=== PATIENT | male | born 1955 | race African-American/Black ===

== ENCOUNTER 2017-03-18 12:31 | Emergency (ER) | payer MEDICARE ==
[~2017-03-18 12:31] MED LIST: 1-ME1LIQ PO; ASPI81TA82 PO; CELE20TA PO; DILA2TAB4 PO; EPZITAB4 PO; INVE6TAB2 PO; LISI30TA44 PO; NEVI200 PO; RANITAB PO
[2017-03-18 12:35] VITALS: BP 150/92; PULSE 93; RESP 22; TEMP 98.7
--- NOTE | 2017-03-18 13:10 | RADRPT ---
EXAM DATE/TIME: 03/18/2017 12:50 [facility] COMPARISON: No previous studies available for comparison. INDICATIONS : Pain elbow radiating into wrist x 5 days, no known injury. MEDICAL HISTORY : None. SURGICAL HISTORY : None. ENCOUNTER: Initial ACUITY: 4 - 6 days PAIN SCORE: 9/10 LOCATION: Right forearm. FINDINGS: Two view examination of the right forearm demonstrates no evidence of fracture or dislocation. Bony mineralization is normal. The soft tissue structures are intact. CONCLUSION: Negative exam. Chi Hernandez MD on March 18, 2017 at 13:08 Board Certified Radiologist. This report was verified electronically.
[2017-03-18 13:23] LABS: AUTOMATED NEUTROPHIL # 2.2 TH/MM3 (1.8-7.7); BASOPHIL % 0.5 % (0.0-2.0); EOSINOPHIL # 0.1 TH/MM3 (0-0.4); EOSINOPHIL % 1.1 % (0.0-4.0); HEMATOCRIT 46.2 % (39.0-51.0); HEMO FLAGS DIFF FINAL; LYMPH % 44.2 % (9.0-44.0); LYMPHOCYTE # 2.2 TH/MM3 (1.0-4.8); MEAN CELL VOLUME 102.7 FL (80.0-100.0); MEAN CORPUSCULAR HGB CONC 34.1 % (32.0-36.0); MONO % 9.4 % (0.0-8.0); NEUT % 44.8 % (16.0-70.0); PLATELET COUNT 191 TH/MM3 (150-450); RED CELL DISTRIBUTION WIDTH 12.8 % (11.6-17.2)
[2017-03-18 13:37] LABS: BICARBONATE 22.7 MEQ/L (21.0-32.0); POTASSIUM 3.9 MEQ/L (3.5-5.1)
[2017-03-18] MEDS ORDERED: COLA100C5 PO (13:43)
[2017-03-18] MEDS ORDERED: ASPI81TA23 PO (13:43)
[2017-03-18] MEDS ORDERED: CLON0.2T PO (13:43)
[2017-03-18] MEDS ORDERED: AMLO10 PO (13:43)
[2017-03-18] MEDS ORDERED: LIPI40TA PO (13:43)
[2017-03-18] MEDS ORDERED: CALC1TAB37 PO (13:43)
[2017-03-18] MEDS ORDERED: EMTR1TAB4 PO (13:43)
[2017-03-18] MEDS ORDERED: REME45TA PO (13:43)
[2017-03-18] MEDS ORDERED: THERTAB56 PO (13:43)
[2017-03-18] MEDS ORDERED: UMEC1AER INH (13:43)
[2017-03-18] MEDS ORDERED: CELE10TA PO (13:43)
[2017-03-18] MEDS ORDERED: [UNRECOGNIZED DRUG - CODE] PO (13:43)
[2017-03-18] MEDS ORDERED: CHOL1CAP34 PO (13:43)
[2017-03-18] MEDS ORDERED: VALA1TAB PO (13:43)
[2017-03-18] MEDS ORDERED: PLAQ200T PO (13:43)
[2017-03-18 13:47] LABS: APTT (PATIENT) 24.7 SEC (24.3-30.1); INTERNATIONAL NORMALIZED RATIO 0.9 RATIO; PROTHROMBIN TIME - PATIENT 10.2 SEC (9.8-11.6)
--- NOTE | 2017-03-18 13:52 | RADRPT ---
EXAM DATE/TIME: 03/18/2017 13:16 [facility] COMPARISON: No previous studies available for comparison. INDICATIONS : Right arm pain and swelling. MEDICAL HISTORY : Hypercholesterolemia. Hypertension. Gastroesophageal reflux disease. Liver disease. HIV. Hep B and C. SURGICAL HISTORY : Cholecystectomy. Left leg fracture repair. ENCOUNTER: Initial ACUITY: 3 days PAIN SCORE: 6/10 LOCATION: Right arm. FINDINGS: There is spontaneous flow documented in the brachial, basilic, cephalic, axillary, and subclavian vei ns. The vessels are compressible and augmentation response is documented. No filling defects are se en. The flow is phasic with respiration. Direction of flow in the jugular vein is caudal. CONCLUSION: No DVT right arm. Castillo Prince MD on March 18, 2017 at 13:49 Board Certified Radiologist. This report was verified electronically.
[2017-03-18] MEDS ORDERED: GABA100C4 PO (14:16)
[2017-03-18] MEDS ORDERED: NAPR500T2 PO (14:16)
--- NOTE | 2017-03-18 14:16 | PD ---
HPI Chief Complaint: Pain: Acute or Chronic Time Seen by Provider: 13:32 Travel History International Travel<30 days: No Contact w/Intl Traveler<30days: No Traveled to known affect area: No History of Present Illness HPI This is a 62 year old male who presents to the emergency department with right arm pain, constant, moderate severity, aching and shooting for three days, starting at his neck, extending down his shoulder and radiating into his fingers with some numbness and tingling in the middle three fingers. He also feels the right arm is somewhat swollen. He tried to go to work to day but it was painful every time he tried to lift anything. He's been trying to take ibuprofen but it's not been helping. He does of a history of HIV which he says is well controlled on medications and he denies any history of IV drug use. PFSH Past Medical History Arthritis: No Asthma: No Autoimmune Disease: Yes (HIV+) Blood Disorders: No Anxiety: No Depression: No Heart Rhythm Problems: No Cancer: No Cardiac Catheterization: Yes Cardiovascular Problems: Yes High Cholesterol: Yes Chemotherapy: No Chest Pain: Yes Congestive Heart Failure: No COPD: No Cerebrovascular Accident: No Diabetes: No Diminished Hearing: No Endocrine: No Gastrointestinal Disorders: Yes (HEP C AND B) GERD: Yes Glaucoma: No Genitourinary: No Headaches: No Hepatitis: Yes (B AND C) Hiatal Hernia: No Hypertension: Yes Immune Disorder: Yes (HIV) Implanted Vascular Access Dvce: Yes Kidney Stones: No Musculoskeletal: No Neurologic: No Psychiatric: No Reproductive: No Respiratory: No Migraines: No Myocardial Infarction: Yes (THINKS MAY HAVE HAD) Radiation Therapy: No Renal Failure: No Seizures: No Sleep Apnea: No Thyroid Disease: No Ulcer: No Tetanus Vaccination: > 5 Years Past Surgical History Abdominal Surgery: Yes (gallbladder removal) AICD: No Cholecystectomy: Yes Coronary Artery Bypass Graft: No Endocrine Surgery: No Genitourinary Surgery: No Gynecologic Surgery: No Joint Replacement: Yes (RODS IN LEFT LEG) Pacemaker: No Other Surgery: Yes Social History Alcohol Use: No Tobacco Use: Yes (1PPD) Substance Use: No Allergies-Medications (Allergen,Severity, Reaction): Coded Allergies: No Known Allergies (Verified Adverse Reaction, Unknown, 03/18/17) Reported Meds & Prescriptions Reported Meds & Active Scripts Active Reported Anoro Ellipta Inh (Umeclidinium/Vilanterol) 62.5-25 Mcg/Act Aero 1 Puff INH DAILY Valacyclovir (Valacyclovir HCl) 1,000 Mg Tab 1,000 Mg PO DAILY Thera (Multiple Vitamin) 1 Tab Tab 1 Tab PO DAILY Calcium 600+D (Calcium Carbonate-Cholecalciferol) 600-800 Mg-Unit Tab 1 Tab PO BID Norvasc (Amlodipine Besylate) 10 Mg Tab 10 Mg PO DAILY Clonidine (Clonidine HCl) 0.2 Mg Tab 0.2 Mg PO BID Celexa (Citalopram Hydrobromide) 10 Mg Tab 10 Mg PO DAILY Colace (Docusate Sodium) 100 Mg Capsule 100 Mg PO BID Aspirin EC (Aspirin) 81 Mg Tabdr 81 Mg PO DAILY Lipitor (Atorvastatin Calcium) 40 Mg Tab 40 Mg PO HS Plaquenil (Hydroxychloroquine Sulfate) 200 Mg Tab 200 Mg PO DAILY Take with food Remeron (Mirtazapine) 45 Mg Tab 45 Mg PO HS Vitamin D3 (Cholecalciferol) 50,000 Unit Cap 50,000 Units PO EVERY 2 WEEKS Descovy (Emtricitabine-Tenofovir Alafenamide) 200-25 mg Tab 1 Tab PO DAILY Nevirapine ER (Nevirapine) 400 Mg Tab 400 Mg PO DAILY Review of Systems Except as stated in HPI: all other systems reviewed are Neg Physical Exam Narrative GENERAL:Well appearing, no acute distress SKIN: Focused skin assessment warm and dry. HEAD: Atraumatic. Normocephalic. EYES: Pupils equal and round. No injection or drainage. ENT: Moist mucous membranes NECK: Trachea midline. CARDIOVASCULAR: Regular rate and rhythm. No murmur appreciated. 2+ right radial pulse with normal capillary refill. Hand is warm and well perfused. RESPIRATORY: Clear to auscultation. Breath sounds equal bilaterally. GASTROINTESTINAL: Abdomen soft, non-tender, nondistended. MUSCULOSKELETAL: No obvious deformities. NEUROLOGICAL: Awake and alert. No obvious cranial nerve deficits. Sensation and motor intact in the median, ulnar and radial distributions of the right hand. PSYCHIATRIC: Appropriate mood and affect; insight and judgment normal. Data Data Last Documented VS Vital Signs Date Time Temp Pulse Resp B/P (MAP) Pulse Ox O2 Delivery O2 Flow Rate FiO2 03/18/17 12:35 98.7 93 22 150/92 (111) Orders Orders Us Arm Venous Doppler (03/18/17 ) Forearm (2vws) (03/18/17 ) Complete Blood Count With Diff (03/18/17 12:41) Basic Metabolic Panel (Bmp) (03/18/17 12:41) Coag Profile (03/18/17 12:41) Labs Laboratory Tests Test 03/18/17 12:45 White Blood Count 5.0 TH/MM3 Red Blood Count 4.50 MIL/MM3 Hemoglobin 15.8 GM/DL Hematocrit 46.2 % Mean Corpuscular Volume 102.7 FL Mean Corpuscular Hemoglobin 35.0 PG Mean Corpuscular Hemoglobin Concent 34.1 % Red Cell Distribution Width 12.8 % Platelet Count 191 TH/MM3 Mean Platelet Volume 6.8 FL Neutrophils (%) (Auto) 44.8 % Lymphocytes (%) (Auto) 44.2 % Monocytes (%) (Auto) 9.4 % Eosinophils (%) (Auto) 1.1 % Basophils (%) (Auto) 0.5 % Neutrophils # (Auto) 2.2 TH/MM3 Lymphocytes # (Auto) 2.2 TH/MM3 Monocytes # (Auto) 0.5 TH/MM3 Eosinophils # (Auto) 0.1 TH/MM3 Basophils # (Auto) 0.0 TH/MM3 CBC Comment DIFF FINAL Differential Comment Prothrombin Time 10.2 SEC Prothromb Time International Ratio 0.9 RATIO Activated Partial Thromboplast Time 24.7 SEC Blood Urea Nitrogen 16 MG/DL Creatinine 1.14 MG/DL Random Glucose 101 MG/DL Calcium Level 9.0 MG/DL Sodium Level 138 MEQ/L Potassium Level 3.9 MEQ/L Chloride Level 107 MEQ/L Carbon Dioxide Level 22.7 MEQ/L Anion Gap 8 MEQ/L Estimat Glomerular Filtration Rate 79 ML/MIN [facility] Medical Decision Making Medical Screen Exam Complete: Yes Emergency Medical Condition: Yes Interpretation(s) No leukocytosis Macrocytosis Electrolytes are reassuring Differential Diagnosis Cervical radiculopathy, right upper extremity DVT, cellulitis, gout, osteoarthritis, SVC syndrome Narrative Course This is a 62-year-old male who presents to the emergency department with right upper extremity pain that shoots down the arm and is associated with this some numbness in the fingers. The hand is well perfused. I don't appreciate any focal warmth to suggest an infection. I think the description of his symptoms sounds concerning for cervical radiculopathy. He denies any history of IV drug use and he is afebrile and nontoxic. Right upper extremity ultrasound was negative. He does have a history of pulmonary emboli. I advised him that if his symptoms don't improve in one week he should have a repeat ultrasound. Otherwise he'll be treated with anti-inflammatories and gabapentin for neuropathy and he was told to follow up with his primary care physician for physical therapy. Diagnosis Primary Impression: Cervical radiculopathy Patient Instructions: General Instructions Additional Instructions: If If you develop increasing numbness, weakness of your hand, coolness or severe pain return to the emergency department. If you symptoms are still present after one week, have a repeat ultrasound of your right arm to rule out blood clot. Followup with your primary care physician in 2-3 days if your symptoms are not resolved as you may require physical therapy. Med/Other Pt SpecificInfo: Prescription(s) given Scripts Gabapentin (Gabapentin) 100 Mg Cap 100 MG PO TID for Pain Management, #50 CAP 0 Refills Prov: Lizzy Porter MD 03/18/17 Naproxen (Naproxen) 500 Mg Tab 500 MG PO BID Y for PAIN SCALE 4 TO 10, #20 TAB 0 Refills Prov: Lizzy Porter MD 03/18/17 Disposition: 01 DISCHARGE HOME Condition: Stable Lizzy Porter MD Mar 18, 2017 14:16
[2017-03-18] MEDS ORDERED: KETOROLAC TROMETHAMINE 60 MG/2 ML (IM) VIAL IM ONE (14:30)
[2017-03-18] MEDS ORDERED: HYDROmorphone HCL PF 0.5 MG/0.5 ML SYRINGE IM ONE (14:30)
[2017-03-18 14:32] VITALS: BP 152/89
== END 2017-03-18 14:41 | disposition home or self-care (01) ==
LOC: NEPD 12:31
DX: M54.12 Radiculopathy, cervical region (principal); I10 Essential (primary) hypertension; E78.00 Pure hypercholesterolemia, unspecified; Z21 Asymptomatic human immunodeficiency virus [HIV] infection status; B19.20 Unspecified viral hepatitis C without hepatic coma; K21.9 Gastro-esophageal reflux disease without esophagitis; F17.200 Nicotine dependence, unspecified, uncomplicated
CPT/HCPCS: 73090; 80048; 85025; 85610; 85730; 93971; 96372; 99285; J1170; J1885

== ENCOUNTER 2017-08-26 05:32 | Observation (INO) | payer MEDICARE, OTHER ==
[~2017-08-26] VITALS: Ht 170.2 cm; Wt 80.0 kg
[2017-08-26] VITALS (8 sets, daily range): BP systolic 115–132; BP diastolic 60–79; PULSE 65–106; RESP 16–19; TEMP 96.8–98.1; O2SAT 93–99
[~2017-08-26 05:32] MED LIST changes: -1-ME1LIQ PO; +AMLO10 PO; +ASPI81TA23 PO; -ASPI81TA82 PO; +CALC1TAB37 PO; +CELE10TA PO; -CELE20TA PO; +CHOL1CAP34 PO; +CLON0.2T PO; +COLA100C5 PO; -DILA2TAB4 PO; +EMTR1TAB4 PO; -EPZITAB4 PO; +GABA100C4 PO; -INVE6TAB2 PO; +LIPI40TA PO; -LISI30TA44 PO; +NAPR500T2 PO; -NEVI200 PO; +PLAQ200T PO; -RANITAB PO; +REME45TA PO; +THERTAB56 PO; +UMEC1AER INH; +VALA1TAB PO; +[UNRECOGNIZED DRUG - CODE] PO
--- NOTE | 2017-08-26 05:49 | PD ---
HPI Chief Complaint: Allergic/Adverse Reaction Time Seen by Provider: 05:45 Travel History International Travel<30 days: No Contact w/Intl Traveler<30days: No Traveled to known affect area: No History of Present Illness HPI The patient is a 62 year old male who presents to the [facility] emergency department with a history of awakening at 4:50 AM with a sensation of swelling and itching to the left side of his lower lip. The patient reports that he has had this happen in the past, one year ago. He was told that it might be related to his lisinopril, however his primary care physician continued him on the medication. He denies having any history of food allergies or environmental allergies. He denies having any tongue or throat swelling. He denies having any chest pain, chest pressure, or shortness of breath. He denies having any abdominal pain, diarrhea, or cramping. He denies having any generalized itching or other rash. On review of systems otherwise, the patient denies having any known recent fevers, cough, congestion, neck pain, vomiting, urinary symptoms, or neurologic symptoms. [facility] Past Medical History Narrative Medical The patient's past medical history is significant for angioedema 1 year ago, history of mood disorder, history of HIV currently on retroviral medications with his last CD4 count done in June 2017 and reportedly 758 with a viral load that was undetectable, history of hypertension, hyperlipidemia, acid reflux , anxiety, depression, history of substance abuse, history of hepatitis B and C. Arthritis: No Asthma: No Autoimmune Disease: Yes (HIV+) Blood Disorders: No Anxiety: No Depression: No Heart Rhythm Problems: No Cancer: No Cardiac Catheterization: Yes Cardiovascular Problems: Yes High Cholesterol: Yes Chemotherapy: No Chest Pain: Yes Congestive Heart Failure: No COPD: No Cerebrovascular Accident: No Diabetes: No Diminished Hearing: No Endocrine: No Gastrointestinal Disorders: Yes (HEP C AND B) GERD: Yes Glaucoma: No Genitourinary: No Headaches: No Hepatitis: Yes (B AND C) Hiatal Hernia: No Hypertension: Yes Immune Disorder: Yes (HIV) Implanted Vascular Access Dvce: Yes Kidney Stones: No Musculoskeletal: No Neurologic: No Psychiatric: No Reproductive: No Respiratory: No Migraines: No Myocardial Infarction: Yes (THINKS MAY HAVE HAD) Radiation Therapy: No Renal Failure: No Seizures: No Sleep Apnea: No Thyroid Disease: No Ulcer: No Tetanus Vaccination: < 5 Years Influenza Vaccination: Yes Past Surgical History Narrative Surgical The patient's past surgical history is significant for cholecystectomy, left knee surgery. Abdominal Surgery: Yes (gallbladder removal) AICD: No Cholecystectomy: Yes Coronary Artery Bypass Graft: No Endocrine Surgery: No Genitourinary Surgery: No Gynecologic Surgery: No Joint Replacement: Yes (RODS IN LEFT LEG) Pacemaker: No Other Surgery: Yes Social History Alcohol Use: No Tobacco Use: Yes (1PPD) Substance Use: No Allergies-Medications (Allergen,Severity, Reaction): Coded Allergies: lisinopril (Verified Allergy, Severe, 08/26/17) angioedema Reported Meds & Prescriptions Reported Meds & Active Scripts Active Gabapentin 100 Mg Cap 100 Mg PO TID Naproxen 500 Mg Tab 500 Mg PO BID PRN Reported Anoro Ellipta Inh (Umeclidinium/Vilanterol) 62.5-25 Mcg/Act Aero 1 Puff INH DAILY Valacyclovir (Valacyclovir HCl) 1,000 Mg Tab 1,000 Mg PO DAILY Thera (Multiple Vitamin) 1 Tab Tab 1 Tab PO DAILY Calcium 600+D (Calcium Carbonate-Cholecalciferol) 600-800 Mg-Unit Tab 1 Tab PO BID Norvasc (Amlodipine Besylate) 10 Mg Tab 10 Mg PO DAILY Clonidine (Clonidine HCl) 0.2 Mg Tab 0.2 Mg PO BID Celexa (Citalopram Hydrobromide) 10 Mg Tab 10 Mg PO DAILY Colace (Docusate Sodium) 100 Mg Capsule 100 Mg PO BID Aspirin EC (Aspirin) 81 Mg Tabdr 81 Mg PO DAILY Lipitor (Atorvastatin Calcium) 40 Mg Tab 40 Mg PO HS Plaquenil (Hydroxychloroquine Sulfate) 200 Mg Tab 200 Mg PO DAILY Take with food Remeron (Mirtazapine) 45 Mg Tab 45 Mg PO HS Vitamin D3 (Cholecalciferol) 50,000 Unit Cap 50,000 Units PO EVERY 2 WEEKS Descovy (Emtricitabine-Tenofovir Alafenamide) 200-25 mg Tab 1 Tab PO DAILY Nevirapine ER (Nevirapine) 400 Mg Tab 400 Mg PO DAILY Review of Systems Except as stated in HPI: all other systems reviewed are Neg General / Constitutional: No: Fever Eyes: No: Visual changes HENT: Positive: Other (Lip swelling), No: Headaches Cardiovascular: No: Chest Pain or Discomfort Respiratory: No: Shortness of Breath Gastrointestinal: No: Abdominal Pain Genitourinary: No: Dysuria Musculoskeletal: No: Pain Skin: No Rash Neurologic: No: Weakness Psychiatric: No: Depression Endocrine: No: Polydipsia Hematologic/Lymphatic: No: Easy Bruising Physical Exam Narrative General: The patient is a well-developed well-nourished male in no acute distress. Head and Neck exam: Head is normocephalic atraumatic. Eyes: EOMI, pupils are equal round and reactive to light. Nose: Midline septum with pink mucous membranes Mouth: The patient is noted to have swelling of his lower lip predominantly on the left side. Dentition unremarkable. Moist mucus membranes. Posterior oropharynx is not erythematous. No tonsillar hypertrophy. Uvula midline. Airway patent. Neck: No palpable lymphadenopathy. No nuchal rigidity. No thyromegaly. Cardiovascular: Regular rate and rhythm without murmurs, gallops, or rubs. No pulse deficit to the extremities on simultaneous auscultation and palpation of his radial artery. Lungs: Clear to auscultation bilaterally. No wheezes, rhonchi, or rales. Abdomen: Soft, without tenderness to palpation in all 4 quadrants of the abdomen. No guarding, rebound, or rigidity. Normal bowel sounds are audible. No tenderness on palpation of McBurney's point. Extremities: No clubbing, cyanosis, or edema. 2+ pulses in all 4 extremities. No calf tenderness on palpation. Back: No spinous process tenderness to palpation. No costovertebral angle tenderness to palpation. Neurologic Exam: Grossly nonfocal Skin Exam: No rash noted. Intact skin that is warm and dry. Data Data Last Documented VS Vital Signs Date Time Temp Pulse Resp B/P (MAP) Pulse Ox O2 Delivery O2 Flow Rate FiO2 08/26/17 05:37 97.7 106 18 122/64 (83) 99 Orders Orders Complete Blood Count With Diff (08/26/17 05:56) Basic Metabolic Panel (Bmp) (08/26/17 05:56) Iv Access Insert/Monitor (08/26/17 05:56) Ecg Monitoring (08/26/17 05:56) Oximetry (08/26/17 05:56) Diphenhydramine Inj (Benadryl Inj) (08/26/17 06:00) Methylprednisolone So Succ Inj (Solumedr (08/26/17 06:00) Famotidine Inj (Pepcid Inj) (08/26/17 06:00) MDM Medical Decision Making Medical Screen Exam Complete: Yes Emergency Medical Condition: Yes Medical Record Reviewed: Yes Differential Diagnosis Allergic reaction with hives, versus angioedema from MARLEE inhibitor, versus hereditary angioedema Narrative Course During the course of the patient's emergency department visit, the patient's history, examination, and differential diagnosis were reviewed with the patient. The patient was placed on a cardiac care unit nurse with oximetry and frequent blood pressure monitoring. The patient had IV access obtained and blood work sent for analysis. The patient was initially provided Benadryl 25 mg IV, Solu-Medrol 125 mg IV, famotidine 20 mg IV. The patient's laboratory studies are pending at the conclusion of my shift. The patient's case will be checked out to the oncoming emergency physician to disposition the patient based on the conclusion of his workup. The patient was reexamined at approximately 6:50 AM. The patient continues to have some swelling of his lower lip, however no tongue swelling, no posterior oropharynx swelling. The patient is resting comfortably on the monitor. Additional Instructions: The patient is instructed to stop lisinopril and avoid all MARLEE inhibitors. Meera Villanueva MD Aug 26, 2017 05:49
[2017-08-26] MEDS ORDERED: FAMOTIDINE 20 MG/2 ML VIAL IV PUSH SCH (06:00)
[2017-08-26] MEDS ORDERED: methylPREDNISolone SOD SUCC 125 MG/2 ML VIAL IV PUSH ONE (06:00)
[2017-08-26] MEDS: diphenhydrAMINE HCL 50 MG/ML VIAL IV PUSH ONE ×2 (06:48→07:25)
--- NOTE | 2017-08-26 06:58 | PD ---
Physical Exam Date Seen by Provider: Aug 26, 2017 Time Seen by Provider: 06:56 Narrative The patient is a 62-year-old male was initially evaluated by the previous physician. Please refer to the initial history, physical, diagnostic evaluation , and treatment modality plan. The patient was signed out at 7 AM with laboratory evaluation and reevaluation pending. Data Data Last Documented VS Vital Signs Date Time Temp Pulse Resp B/P (MAP) Pulse Ox O2 Delivery O2 Flow Rate FiO2 08/26/17 05:37 97.7 106 18 122/64 (83) 99 Orders Orders Complete Blood Count With Diff (08/26/17 05:56) Basic Metabolic Panel (Bmp) (08/26/17 05:56) Iv Access Insert/Monitor (08/26/17 05:56) Ecg Monitoring (08/26/17 05:56) Oximetry (08/26/17 05:56) Diphenhydramine Inj (Benadryl Inj) (08/26/17 06:00) Methylprednisolone So Succ Inj (Solumedr (08/26/17 06:00) Famotidine Inj (Pepcid Inj) (08/26/17 06:00) Labs Laboratory Tests Test 08/26/17 06:42 White Blood Count 6.1 TH/MM3 Red Blood Count 4.33 MIL/MM3 Hemoglobin 15.3 GM/DL Hematocrit 44.3 % Mean Corpuscular Volume 102.3 FL Mean Corpuscular Hemoglobin 35.3 PG Mean Corpuscular Hemoglobin Concent 34.5 % Red Cell Distribution Width 13.2 % Platelet Count 184 TH/MM3 Mean Platelet Volume 7.4 FL Neutrophils (%) (Auto) 79.2 % Lymphocytes (%) (Auto) 14.7 % Monocytes (%) (Auto) 5.8 % Eosinophils (%) (Auto) 0.0 % Basophils (%) (Auto) 0.3 % Neutrophils # (Auto) 4.8 TH/MM3 Lymphocytes # (Auto) 0.9 TH/MM3 Monocytes # (Auto) 0.4 TH/MM3 Eosinophils # (Auto) 0.0 TH/MM3 Basophils # (Auto) 0.0 TH/MM3 CBC Comment AUTO DIFF Differential Comment AUTO DIFF CONFIRMED Platelet Estimate NORMAL Platelet Morphology Comment NORMAL Blood Urea Nitrogen 23 MG/DL Creatinine 1.13 MG/DL Random Glucose 115 MG/DL Calcium Level 8.9 MG/DL Sodium Level 139 MEQ/L Potassium Level 4.6 MEQ/L Chloride Level 106 MEQ/L Carbon Dioxide Level 24.4 MEQ/L Anion Gap 9 MEQ/L Estimat Glomerular Filtration Rate 80 ML/MIN [facility] Medical Record Reviewed: Yes Supervised Visit with YAMILKA: No Interpretation(s) Laboratory Tests Test 08/26/17 06:42 White Blood Count 6.1 TH/MM3 Red Blood Count 4.33 MIL/MM3 Hemoglobin 15.3 GM/DL Hematocrit 44.3 % Mean Corpuscular Volume 102.3 FL Mean Corpuscular Hemoglobin 35.3 PG Mean Corpuscular Hemoglobin Concent 34.5 % Red Cell Distribution Width 13.2 % Platelet Count 184 TH/MM3 Mean Platelet Volume 7.4 FL Neutrophils (%) (Auto) 79.2 % Lymphocytes (%) (Auto) 14.7 % Monocytes (%) (Auto) 5.8 % Eosinophils (%) (Auto) 0.0 % Basophils (%) (Auto) 0.3 % Neutrophils # (Auto) 4.8 TH/MM3 Lymphocytes # (Auto) 0.9 TH/MM3 Monocytes # (Auto) 0.4 TH/MM3 Eosinophils # (Auto) 0.0 TH/MM3 Basophils # (Auto) 0.0 TH/MM3 CBC Comment AUTO DIFF Differential Comment AUTO DIFF CONFIRMED Platelet Estimate NORMAL Platelet Morphology Comment NORMAL Blood Urea Nitrogen 23 MG/DL Creatinine 1.13 MG/DL Random Glucose 115 MG/DL Calcium Level 8.9 MG/DL Sodium Level 139 MEQ/L Potassium Level 4.6 MEQ/L Chloride Level 106 MEQ/L Carbon Dioxide Level 24.4 MEQ/L Anion Gap 9 MEQ/L Estimat Glomerular Filtration Rate 80 ML/MIN Differential Diagnosis Differential diagnosis includes angioedema, allergic reaction, anaphylaxis, medication side effect, abscess. Narrative Course Patient was initially evaluated by the previous physician, Dr. Villanueva. Please refer to the initial history, physical, diagnostic evaluation, and treatment modality plan. The patient was signed out at 7 AM with laboratory evaluation and reevaluation of angioedema pending. Laboratory evaluation unremarkable. The patient was reevaluated once again at 8:10 AM. The patient's lower lip swelling has progressed per the patient's report and by physical exam. Still no involvement of the uvula, posterior oropharynx or tongue. He is able to lie supine at 30 he denies any difficulty swallowing. However, the angioedema has progressed, therefore, patient will need 23 hour observation. The patient states he does not change the dose of his lisinopril recently and denies any recent changes in his antiviral medications. The patient has [facility], therefore, discussed the patient with the on-call [facility] physician, Dr. Morse, who agrees with observation. The patient is advised to notify nursing staff immediately if he has any increase in swelling, difficulty swallowing, or involvement of the posterior throat and/or tongue. Physician Communication Physician Communication I discussed the patient with Dr. Morse who agrees with 23 hour observation. Diagnosis Primary Impression: Angioedema Qualified Codes: T78.3XXA - Angioneurotic edema, initial encounter Admitting Information Admitting Physician Requests: Observation Additional Instruction: The patient is instructed to stop lisinopril and avoid all MARLEE inhibitors. Condition: Stable Junaid Gonzalez MD Aug 26, 2017 06:58
[2017-08-26 07:14] LABS: AUTOMATED NEUTROPHIL # 4.8 TH/MM3 (1.8-7.7); BASOPHIL % 0.3 % (0.0-2.0); HEMATOCRIT 44.3 % (39.0-51.0); HEMOGLOBIN 15.3 GM/DL (13.0-17.0); LYMPH % 14.7 % (9.0-44.0); LYMPHOCYTE # 0.9 TH/MM3 (1.0-4.8); MEAN CELL VOLUME 102.3 FL (80.0-100.0); MEAN CORPUSCULAR HEMOGLOBIN 35.3 PG (27.0-34.0); MEAN CORPUSCULAR HGB CONC 34.5 % (32.0-36.0); MEAN PLATELET VOLUME 7.4 FL (7.0-11.0); MONO % 5.8 % (0.0-8.0); MONOCYTE # 0.4 TH/MM3 (0-0.9); NEUT % 79.2 % (16.0-70.0); PLATELET COUNT 184 TH/MM3 (150-450); RED BLOOD COUNT 4.33 MIL/MM3 (4.50-5.90); RED CELL DISTRIBUTION WIDTH 13.2 % (11.6-17.2); WHITE BLOOD COUNT 6.1 TH/MM3 (4.0-11.0)
[2017-08-26 07:53] LABS: BICARBONATE 24.4 MEQ/L (21.0-32.0); CALCIUM 8.9 MG/DL (8.5-10.1); CREATININE 1.13 MG/DL (0.60-1.30)
[2017-08-26] MEDS ORDERED: LISI40TA PO (07:57)
[2017-08-26] MEDS ORDERED: ANDR1.62 TOPICAL (07:57)
[2017-08-26] MEDS ORDERED: ONDANSETRON HCL 4 MG/2 ML VIAL IVP PRN (08:30)
[2017-08-26] MEDS ORDERED: NALOXONE HCL 0.4 MG/ML AMP IV PUSH PRN (08:30)
[2017-08-26] MEDS ORDERED: MAGNESIUM HYDROXIDE SUSP 30 ML CUP PO PRN (08:30)
[2017-08-26] MEDS ORDERED: diphenhydrAMINE HCL 50 MG/ML VIAL IV PUSH PRN (08:30)
[2017-08-26] MEDS ORDERED: ACETAMINOPHEN 325 MG TAB PO PRN (08:30)
[2017-08-26] MEDS ORDERED: SODIUM CHLORIDE 0.9% FLUSH 10 ML FLUSH IV FLUSH PRN (08:30)
--- NOTE | 2017-08-26 08:54 | HHI.HP ---
HPI Service [facility] Hospitalists Primary Care Physician Lalito Cote MD Admission Diagnosis Angioedema, medication side effect Chief Complaint: Swelling of lower lip which started this morning approximately 4:30 AM Travel History International Travel<30 Days: No Contact w/Intl Traveler <30 Da: No Traveled to Known Affected Are: No History of Present Illness The patient is a 62 year old male with a past medical history which includes angioedema approximately one year ago, bipolar disorder, HIV currently on antiretrovirals, hypertension, hyperlipidemia, acid reflux, anxiety/depression history of substance abuse as well as hepatitis B and C. Patient presented to the [facility] emergency department with a history of awakening at 4:50 AM with a sensation of swelling and itching to the left side of his lower lip. The patient reports that he has had this happen in the past, one year ago. He was told that it might be related to his lisinopril, however patient continues to take Lisinopril. He denies having any history of food allergies or environmental allergies. He denies having any tongue or throat swelling. He also denies having any chest pain, chest pressure, or shortness of breath, abdominal pain, diarrhea, cramping, generalized itching or other rash. Patient denies any changes in his medications or new medication. Past Family Social History Past Medical History angioedema approximately one year ago, bipolar disorder, HIV currently on antiretrovirals reports last CD4 count June 1999 02/12/57, hypertension, hyperlipidemia, acid reflux, anxiety/depression history of substance abuse as well as hepatitis B and C Past Surgical History cholecystectomy, left knee surgery. Reported Medications Androgel Pump Topical (Testosterone) 20.25/1.25 Gel 20.25 Mg TOPICAL DAILY Lisinopril 40 Mg Tab 40 Mg PO DAILY Anoro Ellipta Inh (Umeclidinium/Vilanterol) 62.5-25 Mcg/Act Aero 1 Puff INH DAILY Valacyclovir (Valacyclovir HCl) 1,000 Mg Tab 1,000 Mg PO DAILY Thera (Multiple Vitamin) 1 Tab Tab 1 Tab PO DAILY Calcium 600+D (Calcium Carbonate-Cholecalciferol) 600-800 Mg-Unit Tab 1 Tab PO BID Norvasc (Amlodipine Besylate) 10 Mg Tab 10 Mg PO DAILY Clonidine (Clonidine HCl) 0.2 Mg Tab 0.2 Mg PO BID Celexa (Citalopram Hydrobromide) 10 Mg Tab 10 Mg PO DAILY Colace (Docusate Sodium) 100 Mg Capsule 100 Mg PO BID Aspirin EC (Aspirin) 81 Mg Tabdr 81 Mg PO DAILY Lipitor (Atorvastatin Calcium) 40 Mg Tab 40 Mg PO HS Plaquenil (Hydroxychloroquine Sulfate) 200 Mg Tab 200 Mg PO BID Take with food Remeron (Mirtazapine) 45 Mg Tab 45 Mg PO HS Vitamin D3 (Cholecalciferol) 50,000 Unit Cap 50,000 Units PO EVERY 2 WEEKS Descovy (Emtricitabine-Tenofovir Alafenamide) 200-25 mg Tab 1 Tab PO DAILY Nevirapine ER (Nevirapine) 400 Mg Tab 400 Mg PO DAILY Allergies: Coded Allergies: lisinopril (Verified Allergy, Severe, 08/26/17) angioedema Family History Reviewed and noncontributory Social History EtOH use 1-2 beers per day Tobacco use current smoker two packs per day for the past 40 + years Denies illicit drug use Physical Exam Vital Signs Vital Signs Date Time Temp Pulse Resp B/P (MAP) Pulse Ox O2 Delivery O2 Flow Rate FiO2 08/26/17 08:20 65 16 132/79 (96) 96 Room Air 08/26/17 05:37 97.7 106 18 122/64 (83) 99 Physical Exam GENERAL: This is a well-nourished, well-developed patient with edema of entire lower lip SKIN: No rashes, ecchymoses or lesions. Cool and dry. HEAD: Atraumatic. Normocephalic. No temporal or scalp tenderness. EYES: Extraocular motions intact. No scleral icterus. No injection or drainage. ENT: Nose without bleeding, purulent drainage or septal hematoma. Throat without erythema, tonsillar hypertrophy or exudate. Uvula midline. Airway patent. NECK: Trachea midline. No JVD or lymphadenopathy. Supple, nontender, no meningeal signs. CARDIOVASCULAR: Regular rate and rhythm RESPIRATORY: Clear to auscultation. Breath sounds equal bilaterally. Good air movement no accessory muscle use GASTROINTESTINAL: Abdomen soft, non-tender, nondistended. MUSCULOSKELETAL: Extremities without clubbing, cyanosis, or edema. No joint tenderness, effusion, or edema noted. No calf tenderness. Negative Homans sign bilaterally. NEUROLOGICAL: Awake and alert. No focal deficits identified. Motor and sensory grossly within normal limits. Five out of 5 muscle strength in all muscle groups. Laboratory Laboratory Tests Test 08/26/17 06:42 White Blood Count 6.1 Red Blood Count 4.33 Hemoglobin 15.3 Hematocrit 44.3 Mean Corpuscular Volume 102.3 Mean Corpuscular Hemoglobin 35.3 Mean Corpuscular Hemoglobin Concent 34.5 Red Cell Distribution Width 13.2 Platelet Count 184 Mean Platelet Volume 7.4 Neutrophils (%) (Auto) 79.2 Lymphocytes (%) (Auto) 14.7 Monocytes (%) (Auto) 5.8 Eosinophils (%) (Auto) 0.0 Basophils (%) (Auto) 0.3 Neutrophils # (Auto) 4.8 Lymphocytes # (Auto) 0.9 Monocytes # (Auto) 0.4 Eosinophils # (Auto) 0.0 Basophils # (Auto) 0.0 CBC Comment AUTO DIFF Differential Comment AUTO DIFF CONFIRMED Platelet Estimate NORMAL Platelet Morphology Comment NORMAL Blood Urea Nitrogen 23 Creatinine 1.13 Random Glucose 115 Calcium Level 8.9 Sodium Level 139 Potassium Level 4.6 Chloride Level 106 Carbon Dioxide Level 24.4 Anion Gap 9 Estimat Glomerular Filtration Rate 80 Result Diagram: 08/26/1742 08/26/1742 Caprini VTE Risk Assessment Caprini VTE Risk Assessment: No/Low Risk (score <= 1) Caprini Risk Assessment Model Point Value = 1 Point Value = 2 Point Value = 3 Point Value = 5 Age 41-60 Minor surgery BMI > 25 kg/m2 Swollen legs Varicose veins or History of unexplained or recurrent spontaneous Oral contraceptives or hormone replacement Sepsis (< 1 month) Serious lung disease, including pneumonia (< 1 month) Abnormal pulmonary function Acute myocardial infarction Congestive heart failure (< 1 month) History of inflammatory bowel disease Medical patient at bed rest Age 61-74 Arthroscopic surgery Major open surgery (> 45 min) Laparoscopic surgery (> 45 min) Malignancy Confined to bed (> 72 hours) Immobilizing plaster cast Central venous access Age >= 75 History of VTE Family history of VTE Factor V Leiden Prothrombin [id number] Lupus anticoagulant Anticardiolipin antibodies Elevated serum homocysteine Heparin-induced thrombocytopenia Other congenital or acquired thrombophilia Stroke (< 1 month) Elective arthroplasty Hip, pelvis, or leg fracture Acute spinal cord injury (< 1 month) Prophylaxis Regimen Total Risk Factor Score Risk Level Prophylaxis Regimen 0-1 Low Early ambulation 2 Moderate Order ONE of the following: *Sequential Compression Device (SCD) *Heparin 5000 units SQ BID 3-4 Higher Order ONE of the following medications: *Heparin 5000 units SQ TID *Enoxaparin/Lovenox 40 mg SQ daily (WT < 150 kg, CrCl > 30 mL/min) *Enoxaparin/Lovenox 30 mg SQ daily (WT < 150 kg, CrCl > 10-29 mL/min) *Enoxaparin/Lovenox 30 mg SQ BID (WT < 150 kg, CrCl > 30 mL/min) AND/OR *Sequential Compression Device (SCD) 5 or more Highest Order ONE of the following medications: *Heparin 5000 units SQ TID (Preferred with Epidurals) *Enoxaparin/Lovenox 40 mg SQ daily (WT < 150 kg, CrCl > 30 mL/min) *Enoxaparin/Lovenox 30 mg SQ daily (WT < 150 kg, CrCl > 10-29 mL/min) *Enoxaparin/Lovenox 30 mg SQ BID (WT < 150 kg, CrCl > 30 mL/min) AND *Sequential Compression Device (SCD) Assessment and Plan Problem List: (1) Angioedema ICD Codes: T78.3XXA - Angioneurotic edema, initial encounter Status: Acute Plan: - This a 62-year-old male patient with a past medical history which includes angioedema approximately one year ago, bipolar disorder, HIV currently on antiretrovirals reports last CD4 count June 1999 02/12/57, hypertension, hyperlipidemia, acid reflux, anxiety/depression history of substance abuse as well as hepatitis B and C. - Patient presented to the emergency department with reported lower lip edema which began approximately 4:30 AM. Patient reports he had angioedema in the past which was believed to be secondary to lisinopril although he continued to take lisinopril for the past year. Review of outpatient patient records patient has lisinopril listed as an allergy and I do not see active prescription for lisinopril - Patient was given diphenhydramine 50 mg IV, Pepcid 20 mg IV and Solu-Medrol 125 mg IV in the emergency department - Will continue diphenhydramine 50 mg IV as needed for increase in edema/ allergic reaction - Will continue Pepcid 20 mg IV twice a day - Monitor patient in observation status on telemetry - Request for nursing to call MD immediately for signs of worsening edema involvement of tongue uvula throat difficulty swallowing managing secretions or shortness of breath DVT prophylaxis with SCDs Update 08/26 1810: patient reevaluated by myself and Dr. Morse. Patient continues to have lower lip edema. Patient's voice slightly changed. Patient' s uvula midline without edema, also no edema of the tongue noted. Patient denies difficult swallowing or SOB. Add IV Solu medrol 60 mg BID with dose now. Also Add diphenhydramine 50 mg IV now. Continue Pepcid IV BID. Continue close monitoring. Discussed with patient and nurse. (2) HTN (hypertension) ICD Codes: I10 - Essential (primary) hypertension Plan: - Hold Lisinopril due to angioedema - Continue patient's home Clonidine, Amlodipine - monitor BP (3) HIV (human immunodeficiency virus infection) ICD Codes: B20 - Human immunodeficiency virus [HIV] disease Plan: - Continue home antiretrovirals (4) Hepatitis ICD Codes: K75.9 - Inflammatory liver disease, unspecified Plan: - Patient follows with Dr. Cote (5) Anxiety and depression ICD Codes: F41.9 - Anxiety disorder, unspecified; F32.9 - Major depressive disorder, single episode, unspecified Plan: - Continue home Citalopram 10 mg daily, Remeron 45 mg PO QHS (6) Bipolar disorder ICD Codes: F31.9 - Bipolar disorder, unspecified Assessment and Plan Patient examined. Assessment and plan formulated with Heidi Robison PA-C. I agree with the above. I rounded on pt twice, in AM and again at 6pm. Pt had continued swelling of lower lip. Will hold overnight and reevaluate in AM Anticipate d/c to home 08/27/17 Problem Qualifiers (1) Angioedema: Qualified Codes: T78.3XXA - Angioneurotic edema, initial encounter Heidi Robison Aug 26, 2017 08:54 Tremayne Morse DO Aug 27, 2017 12:32
[2017-08-26] MEDS ORDERED: PILL SPLITTER OTHER PRN (09:00)
[2017-08-26] MEDS: SODIUM CHLORIDE 0.9% FLUSH 10 ML FLUSH IV FLUSH SCH ×2 (09:00→21:27)
[2017-08-26] MEDS: SODIUM CHLOR 0.9% 1000 ML INJ 1,000 ML IV SCH ×2 (09:21→21:22)
[2017-08-26] MEDS: UMECLIDINIUM 62.5 MCG/VILANTEROL 25 MCG INHALER INH SCH (09:22)
[2017-08-26] MEDS: valACYclovir HCL 500 MG TAB PO SCH (09:22)
[2017-08-26] MEDS: ASPIRIN EC 81 MG TABEC PO SCH (09:23)
[2017-08-26] MEDS: HYDROXYCHLOROQUINE SULFATE 200 MG TAB PO SCH ×2 (09:23→21:00)
[2017-08-26] MEDS: cloNIDine HCL 0.2 MG TAB PO SCH ×2 (09:23→21:18)
[2017-08-26] MEDS: CITALOPRAM HYDROBROMIDE 20 MG TAB PO SCH (09:23)
[2017-08-26] MEDS: DOCUSATE SODIUM 100 MG CAP PO SCH ×2 (09:23→21:18)
[2017-08-26] MEDS: DESCOVY PO SCH ×2 (12:00→21:26)
[2017-08-26] MEDS ORDERED: diphenhydrAMINE HCL 50 MG/ML VIAL IV PUSH ONE (18:00)
[2017-08-26] MEDS ORDERED: methylPREDNISolone SOD SUCC 125 MG/2 ML VIAL IV PUSH SCH (18:00)
[2017-08-26] MEDS ORDERED: MIRTAZAPINE 15 MG TAB PO SCH (21:00)
[2017-08-26] MEDS ORDERED: ATORVASTATIN 40 MG TAB PO SCH (21:00)
[2017-08-26] MEDS: ACETAMINOPHEN/HYDROcodone 325 MG/5 MG TAB PO PRN (21:22)
[2017-08-26] MEDS: FAMOTIDINE 20 MG/2 ML VIAL IV PUSH SCH (21:27)
[2017-08-27] VITALS: BP 133/66; PULSE 86; RESP 17; TEMP 98.2; O2SAT 94
[2017-08-27 04:00] VITALS: BP 127/68; PULSE 74; RESP 17; TEMP 97.6; O2SAT 94
[2017-08-27 04:10] LABS: BASOPHIL % 0.3 % (0.0-2.0); HEMATOCRIT 44.8 % (39.0-51.0); HEMOGLOBIN 15.6 GM/DL (13.0-17.0); LYMPH % 7.7 % (9.0-44.0); LYMPHOCYTE # 0.7 TH/MM3 (1.0-4.8); MEAN CELL VOLUME 101.3 FL (80.0-100.0); MEAN CORPUSCULAR HEMOGLOBIN 35.2 PG (27.0-34.0); MEAN CORPUSCULAR HGB CONC 34.7 % (32.0-36.0); MEAN PLATELET VOLUME 6.9 FL (7.0-11.0); MONO % 4.6 % (0.0-8.0); MONOCYTE # 0.4 TH/MM3 (0-0.9); NEUT % 87.4 % (16.0-70.0); PLATELET COUNT 182 TH/MM3 (150-450); RED BLOOD COUNT 4.42 MIL/MM3 (4.50-5.90); WHITE BLOOD COUNT 9.1 TH/MM3 (4.0-11.0)
[2017-08-27 04:35] LABS: CALCIUM 8.7 MG/DL (8.5-10.1); CREATININE 1.07 MG/DL (0.60-1.30)
[2017-08-27 08:00] VITALS: BP 164/85; PULSE 70; RESP 18; TEMP 97.7; O2SAT 95
[2017-08-27 08:49] VITALS: O2SAT 95
[2017-08-27] MEDS ORDERED: methylPREDNISolone SOD SUCC 125 MG/2 ML VIAL IV PUSH SCH (09:00)
[2017-08-27] MEDS: cloNIDine HCL 0.2 MG TAB PO SCH (09:13)
[2017-08-27] MEDS: DOCUSATE SODIUM 100 MG CAP PO SCH (09:13)
[2017-08-27] MEDS: CITALOPRAM HYDROBROMIDE 20 MG TAB PO SCH (09:14)
[2017-08-27] MEDS: ASPIRIN EC 81 MG TABEC PO SCH (09:14)
[2017-08-27] MEDS: SODIUM CHLORIDE 0.9% FLUSH 10 ML FLUSH IV FLUSH SCH (09:17)
[2017-08-27] MEDS: FAMOTIDINE 20 MG/2 ML VIAL IV PUSH SCH (09:17)
[2017-08-27] MEDS: UMECLIDINIUM 62.5 MCG/VILANTEROL 25 MCG INHALER INH SCH (09:17)
[2017-08-27] MEDS: SODIUM CHLOR 0.9% 1000 ML INJ 1,000 ML IV SCH (09:18)
[2017-08-27] MEDS: HYDROXYCHLOROQUINE SULFATE 200 MG TAB PO SCH (09:21)
[2017-08-27] MEDS: valACYclovir HCL 500 MG TAB PO SCH (09:21)
[2017-08-27] MEDS: ACETAMINOPHEN/HYDROcodone 325 MG/5 MG TAB PO PRN (09:25)
[2017-08-27] MEDS ORDERED: VIRAMUNE PO SCH (10:00)
[2017-08-27] MEDS ORDERED: MEDR4PAK PO (11:34)
--- NOTE | 2017-08-27 11:38 | HHI.DCPOC ---
Discharge Care Plan Diagnosis: (1) Angioedema (2) HTN (hypertension) Goals to Promote Your Health * To prevent worsening of your condition and complications * To maintain your health at the optimal level Directions to Meet Your Goals Take your medications as prescribed Follow your dietary instruction Follow activity as directed Keep your appointments as scheduled Take your immunizations and boosters as scheduled If your symptoms worsen call your PCP, if no PCP go to Urgent Care Center or Emergency Room Smoking is Dangerous to Your Health. Avoid second hand smoke Call the 24-hour hour crisis hotline for domestic abuse at Heidi Robison Aug 27, 2017 11:38 Tremayne Morse DO Aug 27, 2017 12:33
--- NOTE | 2017-08-27 11:43 | HHI.DS ---
Discharge Summary Admission Date Aug 26, 2017 at 08:20 Discharge Date: Aug 27, 2017 Admitting Diagnosis Angioedema, medication side effect (1) Angioedema ICD Codes: T78.3XXA - Angioneurotic edema, initial encounter Status: Acute (2) HTN (hypertension) ICD Codes: I10 - Essential (primary) hypertension (3) HIV (human immunodeficiency virus infection) ICD Codes: B20 - Human immunodeficiency virus [HIV] disease (4) Hepatitis ICD Codes: K75.9 - Inflammatory liver disease, unspecified (5) Anxiety and depression ICD Codes: F41.9 - Anxiety disorder, unspecified; F32.9 - Major depressive disorder, single episode, unspecified (6) Bipolar disorder ICD Codes: F31.9 - Bipolar disorder, unspecified Consultants None Procedures none Brief History The patient is a 62 year old male with a past medical history which includes angioedema approximately one year ago, bipolar disorder, HIV currently on antiretrovirals, hypertension, hyperlipidemia, acid reflux, anxiety/depression history of substance abuse as well as hepatitis B and C. Patient presented to the [facility] emergency department with a history of awakening at 4:50 AM with a sensation of swelling and itching to the left side of his lower lip. The patient reports that he has had this happen in the past, one year ago. He was told that it might be related to his lisinopril, however patient continues to take Lisinopril. He denies having any history of food allergies or environmental allergies. He denies having any tongue or throat swelling. He also denies having any chest pain, chest pressure, or shortness of breath, abdominal pain, diarrhea, cramping, generalized itching or other rash. Patient denies any changes in his medications or new medication. CBC/BMP: 08/27/17 0333 08/27/17 0333 Significant Findings Laboratory Tests Test 08/26/17 06:42 08/27/17 03:33 Red Blood Count 4.33 MIL/MM3 (4.50-5.90) 4.42 MIL/MM3 (4.50-5.90) Mean Corpuscular Volume 102.3 FL (80.0-100.0) 101.3 FL (80.0-100.0) Mean Corpuscular Hemoglobin 35.3 PG (27.0-34.0) 35.2 PG (27.0-34.0) Neutrophils (%) (Auto) 79.2 % (16.0-70.0) 87.4 % (16.0-70.0) Lymphocytes # (Auto) 0.9 TH/MM3 (1.0-4.8) 0.7 TH/MM3 (1.0-4.8) Blood Urea Nitrogen 23 MG/DL (7-18) 23 MG/DL (7-18) Random Glucose 115 MG/DL (74-106) 175 MG/DL (74-106) Estimat Glomerular Filtration Rate 80 ML/MIN (>89) 85 ML/MIN (>89) Mean Platelet Volume 6.9 FL (7.0-11.0) Lymphocytes (%) (Auto) 7.7 % (9.0-44.0) Neutrophils # (Auto) 8.0 TH/MM3 (1.8-7.7) PE at Discharge GENERAL: This is a well-nourished, well-developed patient, in no apparent distress. facial/lower lip edema resolved CARDIOVASCULAR: Regular rate and rhythm RESPIRATORY: Airway patent Lungs Clear to auscultation. Breath sounds equal bilaterally. GASTROINTESTINAL: Abdomen soft, non-tender, nondistended. Normal active bowel sounds MUSCULOSKELETAL: Extremities without clubbing, cyanosis, or edema. NEURO: Alert & Oriented x4 to person, place, time, situation. Moves all ext x4 Hospital Course Angioedema - resolved This a 62-year-old male patient with a past medical history which includes angioedema approximately one year ago, bipolar disorder, HIV currently on antiretrovirals reports last CD4 count June 1999 02/12/57, hypertension, hyperlipidemia, acid reflux, anxiety/depression history of substance abuse as well as hepatitis B and C. - Patient presented to the emergency department with reported lower lip edema which began approximately 4:30 AM. Patient reports he had angioedema in the past which was believed to be secondary to lisinopril although he continued to take lisinopril for the past year. Review of outpatient patient records patient has lisinopril listed as an allergy and I do not see active prescription for lisinopril - Patient was given diphenhydramine 50 mg IV, Pepcid 20 mg IV and Solu-Medrol 125 mg IV in the emergency department - Will continue diphenhydramine 50 mg IV as needed for increase in edema/ allergic reaction - Will continue Pepcid 20 mg IV twice a day - Monitor patient in observation status on telemetry - Request for nursing to call MD immediately for signs of worsening edema involvement of tongue uvula throat difficulty swallowing managing secretions or shortness of breath DVT prophylaxis with SCDs Update 08/26 1810: patient reevaluated by myself and Dr. Morse. Patient continues to have lower lip edema. Patient's voice slightly changed. Patient' s uvula midline without edema, also no edema of the tongue noted. Patient denies difficult swallowing or SOB. Add IV Solu medrol 60 mg BID with dose now. Also Add diphenhydramine 50 mg IV now. Continue Pepcid IV BID. Continue close monitoring. Discussed with patient and nurse. 08/27 Lower lip edema resolved HTN (hypertension) - DC Lisinopril due to angioedema. Discussed with patient in detail. Patient verbalizes understanding and aware that he is not to take Lisinopril or and drug related to Lisinopril such as MARLEE or ARB in the further. - Continue patient's home Clonidine, Amlodipine - monitor BP HIV (human immunodeficiency virus infection) - Continue home antiretrovirals Hepatitis - Patient follows with Dr. Cote Anxiety and depression - Continue home Citalopram 10 mg daily, Remeron 45 mg PO QHS Bipolar disorder - Bipolar disorder, unspecified Pt Condition on Discharge: Stable Discharge Disposition: Discharge Home Discharge Instructions DIET: Follow Instructions for: Heart Healthy Diet Activities you can perform: Regular-No Restrictions Follow up Referrals: PCP Follow-up - [address] Cote New Medications: Methylprednisolone Dosepak (Medrol Dosepak) 4 Mg Dspk 4 MG PO DIRECTED, #1 DSPK 0 Refills Per Pharmacist direction Continued Medications: Amlodipine (Norvasc) 10 Mg Tab 10 MG PO DAILY for Blood Pressure Management, #30 TAB [address] (Aspirin EC) 81 Mg Tabdr 81 MG PO DAILY, TAB 0 Refills Atorvastatin (Lipitor) 40 Mg Tab 40 MG PO HS for Cholesterol Management, #30 TAB 0 Refills Calcium Carbonate-Cholecalciferol (Calcium 600+D) 600-800 Mg-Unit Tab 1 TAB PO BID, TAB Cholecalciferol (Vitamin D3) 50,000 Unit Cap 58711 UNITS PO EVERY 2 WEEKS for Nutritional Supplement, #30 CAP 0 Refills Citalopram (Celexa) 10 Mg Tab 10 MG PO DAILY for Control Depression, #30 TAB 0 Refills Clonidine (Clonidine) 0.2 Mg Tab 0.2 MG PO BID for Blood Pressure Management, #60 TAB 0 Refills Docusate Sodium (Colace) 100 Mg Capsule 100 MG PO BID Emtricitabine-Tenofovir Alafenamide (Descovy) 200-25 mg Tab 1 TAB PO DAILY for Mgmt Viral Infection, #30 TAB 0 Refills Hydroxychloroquine (Plaquenil) 200 Mg Tab 200 MG PO BID, #30 TAB 0 Refills Take with food Mirtazapine (Remeron) 45 Mg Tab 45 MG PO HS for Depression Control, #30 TAB 0 Refills Multiple Vitamin (Thera) 1 Tab Tab 1 TAB PO DAILY Nevirapine ER (Nevirapine ER) 400 Mg Tab 400 MG PO DAILY for Mgmt Viral Infection, #30 TAB 0 Refills Testosterone Topical (Androgel Pump Topical) 20.25/1.25 Gel 20.25 MG TOPICAL DAILY for Hormone Replacement, #1 BOTTLE 0 Refills Umeclidinium-Vilanterol Inh (Anoro Ellipta Inh) 62.5-25 Mcg/Act Aero 1 PUFF INH DAILY for COPD, #1 INHALER 0 Refills Valacyclovir (Valacyclovir) 1,000 Mg Tab 1000 MG PO DAILY for Mgmt Viral Infection, #30 TAB 0 Refills Discontinued Medications: Lisinopril (Lisinopril) 40 Mg Tab 40 MG PO DAILY for Blood Pressure Management, #30 TAB 0 Refills Additional Information Patient may return to work 08/28/17 with no restrictions Patient examined. Assessment and plan formulated with Heidi Robison PA-C. I agree with the above. Heidi Robison Aug 27, 2017 11:43 Tremayne Morse DO Aug 27, 2017 12:32
[2017-08-27] MEDS ORDERED: FAMOTIDINE 20 MG TAB PO SCH (20:00)
[2017-08-27] MEDS ORDERED: DESCOVY PO SCH (21:00)
== END 2017-08-27 12:32 | disposition home or self-care (01) ==
LOC: NEPE 05:32 → NEDA 08:20 → NEDH 13:26 → NEDA 14:01 → NEPGCP 15:37 → N07A 20:52
PROVIDERS: ADMIT Hospitalist; ATTEND Hospitalist
DX: T78.3XXA Angioneurotic edema, initial encounter (principal); I10 Essential (primary) hypertension; B20 Human immunodeficiency virus [HIV] disease; K75.9 Inflammatory liver disease, unspecified; E78.00 Pure hypercholesterolemia, unspecified; B19.20 Unspecified viral hepatitis C without hepatic coma; B19.10 Unspecified viral hepatitis B without hepatic coma; K21.9 Gastro-esophageal reflux disease without esophagitis; F41.9 Anxiety disorder, unspecified; F31.9 Bipolar disorder, unspecified; F17.200 Nicotine dependence, unspecified, uncomplicated; Z79.899 Other long term (current) drug therapy; Z79.82 Long term (current) use of aspirin
CPT/HCPCS: 80048; 85025; 96361; 96374; 96375; 96376; 99285; G0378; J1200; J2930; J7030